=== PATIENT | male | born 1945 | race Caucasian/White ===

== ENCOUNTER 2017-02-16 12:56 | Emergency (ER) | payer OTHER, MEDICAID ==
[2017-02-16 13:06] VITALS: RESP 18; TEMP 98.1; O2SAT 95
--- NOTE | 2017-02-16 14:06 | EDPHY ---
H & P Stated Complaint: moved to [place] 2 wks ago/is out of all meds/hx stents/ needs his nitro fo HPI/ROS: CHIEF COMPLAINT: Prescription refill HISTORY OF PRESENT ILLNESS: The patient is a 71 y/o male presenting to the ED for a prescription refill for Lisinopril, Nitroglycerin, and Lyrica. He moved to [place] from [place] 2 weeks ago and has not established a primary care provider. His prescribing doctor retired this year. He takes nitroglycerin as needed in the afternoon for "certain activities". He reports feeling slightly depressed due to being homeless. He is not having suicidal ideation. He is currently staying with his friend in [place]. Denies current chest pain, shortness of breath, fever or other pertinent symptoms. REVIEW OF SYSTEMS: A ten point review of systems was performed and is negative with the exception of the items mentioned in the HPI. Past medical history: Hypercholesteremia Neuropathy ADHD Past surgical history: Cardiac stents Back surgery Family history: Noncontributory Social history: Moved to [place] from [place] 2 weeks ago Former smoker Denies alcohol use General Appearance: Alert. Vital signs reviewed. BP 123/73. Eyes: Pupils equal and round, no conjunctival injection, no discharge. Anicteric. ENT, Mouth: Mucous membranes are moist, no oropharyngeal erythema or edema. Neck: No lymphadenopathy, supple. Respiratory: Lungs are clear to auscultation; no wheezes, rales, or rhonchi. Cardiovascular: Regular rate and rhythm; no murmur, rub, or gallop. Gastrointestinal: Abdomen is soft and nontender, no masses or organomegaly, bowel sounds normal. Skin: Warm and dry, no rashes on exposed skin, normal color. Back: Nontender to palpation over the thoracolumbar spine. No CVAT. Extremities: No lower extremity edema, no calf tenderness or swelling. Neurological: Alert and oriented. Moving all four extremities easily and equally. Psychiatric: Normal affect, no agitation. - Personal History Current Tetanus/Diphtheria Vaccine: Yes - Medical/Surgical History Hx Asthma: No Hx Chronic Respiratory Disease: No Hx Diabetes: No Hx Cardiac Disease: Yes Hx Renal Disease: No Hx Cirrhosis: No Hx Alcoholism: No Hx HIV/AIDS: No Hx Splenectomy or Spleen Trauma: No Other PMH: cardiac stents/back surg - Social History Smoking Status: Former smoker Constitutional: Initial Vital Signs Temperature (C) 36.7 C 02/16/17 13:02 Heart Rate 72 02/16/17 13:02 Respiratory Rate 18 02/16/17 13:02 Blood Pressure 123/73 H 02/16/17 13:02 O2 Sat (%) 95 02/16/17 13:02 O2 Delivery Mode Room Air Allergies/Adverse Reactions: No Known Allergies Allergy (Unverified 02/16/17 13:01) Home Medications: Medication Instructions Recorded GABAPENTIN 02/16/17 LYRICA 02/16/17 Lovastatin 02/16/17 Nitroglycerin 02/16/17 Nitroglycerin [Nitrostat 0.4 mg 0.4 mg SL Q5M PRN #1 bottle 02/16/17 (*)] Medical Decision Making ED Course/Re-evaluation: The patient is a 71 y/o male presenting to the ED for a refill of Lisinopril, Nitroglycerin, and Lyrica. He notes he primarily needs his Nitroglycerin tonight for his possible chest pain. We discussed when he should seek medical attention for chest pain. 1420: ED nurse contacted his clinic in [place], who agrees to refill these prescriptions tomorrow. Case management also met with patient. 1430: I have informed the patient that his old primary care practice agrees to refill his prescriptions. I will write him a Nitroglycerin prescription. I have also referred him to a primary care provider. Return precautions provided; patient is comfortable with this plan. I am not aware of an emergency medical condition that would warrant additional evaluation at this time. He is chest pain free. I do not suspect ACS. No recent illnesses or fever. Nothing to suggest influenza or pneumonia. No recent trauma. Departure - Departure Disposition: Home, Routine, Self-Care Clinical Impression: Prescription refill Condition: Good Instructions: Nitroglycerin (By mouth) Additional Instructions: Contact your old primary care provider in [place] tomorrow, so they can refill all of your prescriptions. There phone number is [phone]. Take Nitroglycerin as prescribed. You have been referred to a primary care provider and a sales/marketing in [place]. Please follow up with these physicians in one week. Return to the ED if you develop worsening chest pain, shortness of breath, weakness, nausea, fever or other worsening symptoms. Referrals: Otis Barger [place] [place] - As per Instructions NONE *PRIMARY CARE P,. [Unknown] - As per Instructions [facility],. [Clinic] - As per Instructions Paul Aguilar MD [Medical Doctor] - As per Instructions Prescriptions: Nitroglycerin [Nitrostat 0.4 mg (*)] 0.4 mg SL Q5M PRN #1 bottle PRN Reason: Chest Pain Report Scribed for: Gerda Chirinos Report Scribed by: Ale Allen Date of Report: 02/16/17 Time of Report: 14:07 Physician Review and Approval Statement: 02/16/17 14:06 Portions of this note were transcribed by the biomedical equipment specialist. I, Dr. Gerda Chirinos, personally performed the history, physical exam, and medical decision- making; and confirmed the accuracy of the information in the transcribed note.
[2017-02-16 15:02] VITALS: BP 133/78; PULSE 78
== END 2017-02-16 15:00 | disposition home or self-care (01) ==
DX: Z76.0 Encounter for issue of repeat prescription (principal); Z87.891 Personal history of nicotine dependence